=== PATIENT | female | born 1985 | race Caucasian/White ===

== ENCOUNTER 2019-06-01 09:46 | Emergency (ER) | payer OTHER ==
[2019-06-01] MEDS ORDERED: 0.9 % SODIUM CHLORIDE 1,000 ML BAG IV ONE ×2 (10:14→10:33)
[2019-06-01] MEDS ORDERED: ONDANSETRON HCL IV 4 MG/2 ML VIAL IV ONE (10:14)
[2019-06-01 10:18] LABS: URINE APPEARANCE CLEAR; URINE BILIRUBIN SMALL (NEGATIVE); URINE BLOOD NEGATIVE (NEGATIVE); URINE COLOR YELLOW; URINE GLUCOSE (UA) NEGATIVE (NEGATIVE); URINE KETONE 40 mg/dL (NEGATIVE); URINE LEUKOCYTE ESTERASE NEGATIVE (NEGATIVE); URINE NITRITE NEGATIVE (NEGATIVE); URINE PROTEIN NEGATIVE (NEGATIVE); URINE UROBILINOGEN 0.2 E.U./dL (0.20 - 1.00)
[2019-06-01 10:28] LABS: HCG,QUALITATIVE URINE NEGATIVE (NEGATIVE)
--- NOTE | 2019-06-01 10:30 | Emergency Department Record ---
History of Present Illness - General Chief Complaint: Abdominal Pain Stated Complaint: ABD PAIN Time Seen by Provider: 06/01/19 10:03 Source: Patient Mode of Arrival: Ambulatory Limitations: No limitations - History of Present Illness Initial Comments: pt has had ap for 4 days along with n/v and diarrhea. the pain is constant and in her lower abdomen MD Complaint: Abdominal pain, Flank pain Onset/Timin -: Days(s) Location: LLQ, RLQ Radiation: Back Severity scale (1-10): 7 Quality: Aching, Cramping Consistency: Constant Improves With: Nothing Worsens With: Nothing Associated Symptoms: Diarrhea, Nausea, Vomiting - Related Data LMP (females 10-50): 3 weeks ago Home Medications Medication Instructions Recorded Confirmed Last Taken Multivitamin [Multiple Vitamins] 1 each PO DAILY 06/01/19 06/01/19 Unknown Allergies Allergy/AdvReac Type Severity Reaction Status Date / Time hydromorphone [From Dilaudid] Allergy DIFFICULTY Verified 06/01/19 10:02 BREATHING Sulfa (Sulfonamide Allergy HIVES Verified 06/01/19 10:02 Antibiotics) Travel Screening - Travel/Exposure Within Last 30 Days Have you traveled within the last 30 days?: No Review of Systems Reviewed: No additional complaints except as noted below Constitutional: Reports: As per HPI. Denies: Chills, Fever, Malaise, Night sweats, Weakness, Weight change Eyes: Reports: As per HPI. Denies: Eye discharge, Eye pain, Photophobia, Vision change ENT: Reports: As per HPI. Denies: Congestion, Dental pain, Ear pain, Epistaxis, Hearing loss, Throat pain Respiratory: Reports: As per HPI. Denies: Cough, Dyspnea, Hemoptysis, Stridor, Wheezes Cardiovascular: Reports: As per HPI. Denies: Arrhythmia, Chest pain, Dyspnea on exertion, Edema, Murmurs, Orthopnea, Palpitations, Paroxysmal nocturnal dyspnea, Rheumatic Fever, Syncope Endocrine: Reports: As per HPI. Denies: Fatigue, Heat or cold intolerance, Polydipsia, Polyuria Gastrointestinal: Reports: As per HPI, Abdominal pain, Diarrhea, Nausea, Vomiting. Denies: Constipation, Hematemesis, Hematochezia, Melena Genitourinary: Reports: As per HPI. Denies: Abnormal menses, Discharge, Dyspareunia, Dysuria, Frequency, Hematuria, Incontinence, Retention, Urgency Musculoskeletal: Reports: As per HPI. Denies: Arthralgia, Back pain, Gout, Joint swelling, Myalgia, Neck pain Skin: Reports: As per HPI. Denies: Bruising, Change in color, Change in hair/nails, Lesions, Pruritus, Rash Neurological: Reports: As per HPI. Denies: Abnormal gait, Confusion, Headache, Numbness, Paresthesias, Seizure, Tingling, Tremors, Vertigo, Weakness Psychiatric: Reports: As per HPI. Denies: Anxiety, Auditory hallucinations, Depression, Homicidal thoughts, Suicidal thoughts, Visual hallucinations Hematological/Lymphatic: Reports: As per HPI. Denies: Anemia, Blood Clots, Easy bleeding, Easy bruising, Swollen glands Past Medical History - SOCIAL HISTORY Smoking Status: Never smoker Alcohol Use: None Drug Use: None - RESPIRATORY Hx Respiratory Disorders: No - CARDIOVASCULAR Hx Cardio Disorders: No - NEURO Hx Neuro Disorders: No - GI Hx GI Disorders: No - Hx Genitourinary Disorders: No - ENDOCRINE Hx Endocrine Disorders: No - MUSCULOSKELETAL Hx Musculoskeletal Disorders: No - PSYCH Hx Psych Problems: No - HEMATOLOGY/ONCOLOGY Hx Hematology/Oncology Disorders: No Family Medical History Any Significant Family History?: No Physical Exam - General General Appearance: Alert, Oriented x3, Cooperative, Mild distress - Head Head exam: Normal inspection - Eye Eye exam: Normal appearance, PERRL, EOMI Pupils: Normal accommodation - ENT ENT exam: Normal exam, Mucous membranes moist, Normal external ear exam, Normal orophraynx Ear exam: Normal external inspection. negative: External canal tenderness Nasal Exam: Normal inspection. negative: Discharge, Sinus tenderness Mouth exam: Normal external inspection, Tongue normal Teeth exam: Normal inspection. negative: Dental caries Throat exam: Normal inspection. negative: Tonsillar erythema, Tonsillar exudate - Neck Neck exam: Normal inspection, Full ROM. negative: Tenderness - Respiratory Respiratory exam: Normal lung sounds bilaterally. negative: Respiratory distress - Cardiovascular Cardiovascular Exam: Regular rate, Normal rhythm, Normal heart sounds - GI/Abdominal GI/Abdominal exam: Soft, Normal bowel sounds, Tenderness - Rectal Rectal exam: Deferred - exam: Deferred - Extremities Extremities exam: Normal inspection, Full ROM, Normal capillary refill. negative: Tenderness - Back Back exam: Reports: Normal inspection, Full ROM. Denies: Muscle spasm, Rash noted, Tenderness - Neurological Neurological exam: Alert, CN II-XII intact, Normal gait, Oriented X3 - Psychiatric Psychiatric exam: Normal affect, Normal mood - Skin Skin exam: Dry, Intact, Normal color, Warm Medical Decision Making - Lab Data Result diagrams: 06/01/19 10:25 06/01/19 10:25 Disposition Disposition: Discharge Clinical Impression: Abdominal pain Qualifiers: Abdominal location: lower abdomen, unspecified Qualified Code(s): R10.30 - Lower abdominal pain, unspecified Disposition: Home, Self-Care Condition: (1) Good Instructions: Abdominal Pain (ED) Additional Instructions: follow up with family doctor. return sooner if worse. Forms: Patient Portal Access Quality - Quality Measures Quality Measures: N/A - Blood Pressure Screening Does Patient Have Any of the Following: No Blood Pressure Classification: Normal BP Reading Systolic Measurement: 96 Diastolic Measurement: 62 Screening for High Blood Pressure: < Normal BP, F/U Not Required > [G8783]
[2019-06-01] MEDS ORDERED: KETOROLAC 30 MG/ML VIAL IVP ONE (10:34)
[2019-06-01 10:43] LABS: ABSOLUTE NEUTROPHIL COUNT 4.21; BASO % 0.2 % (0-6); EOS % 0.6 % (0-6); GRAN % 65.4 % (47-80); HEMATOCRIT 37.6 % (35.0-47.0); HEMOGLOBIN 11.8 gm/dl (11.6-16.0); LYMPH % 22.4 % (16-45); MEAN CORPUSCULAR HGB CONC 31.4 g/dl (32-36); MEAN PLATELET VOLUME 11.3 fl (7.4-10.4); MONO % 11.4 % (0-9); PLATELET COUNT 259 K/uL (130-400); RED BLOOD COUNT 4.53 M/uL (3.80-5.40); RED CELL DISTRIBUTION WIDTH 13.4 % (11.5-14.5); WHITE BLOOD COUNT W/O DIFF 6.4 K/uL (4.2-12.2)
[2019-06-01 10:52] LABS: BLOOD UREA NITROGEN 11 mg/dL (6-20); CREATININE 0.6 mg/dL (0.5-0.9); EST GLOMERULAR FILTRATION RATE > 60 mL/min
[2019-06-01 10:53] LABS: LIPASE 36 U/L (13-60); TOTAL PROTEIN 7.2 g/dL (6.6-8.7)
[2019-06-01 10:55] LABS: GLUCOSE,RANDOM 98 mg/dL (74-109)
[2019-06-01 10:58] LABS: ALB/GLOB RATIO 1.7 (1.1-1.8); ALBUMIN 4.5 g/dL (4.0-5.0); ALKALINE PHOSPHATASE 73 U/L (35-104); ALT/SGPT 11 U/L (<33); AST/SGOT 16 U/L (10.0-35.0)
--- NOTE | 2019-06-01 11:53 | CT SCAN REPORT ---
EXAMINATION: CT Abdomen and Pelvis without IV Contrast EXAM DATE: 06/01/2019 11:09 AM TECHNIQUE: Standard protocol CT imaging of the abdomen and pelvis was performed without intravenous c ontrast. INDICATION: Abdominal pain COMPARISON: None ENCOUNTER: Not applicable CT ABDOMEN AND PELVIS FINDINGS: Lung Bases: Included extent of the lung bases are clear. Hepatobiliary: The liver has a normal size with a smooth surface. There is no biliary dilatation and the gallbladder is unremarkable. Pancreas: The pancreas is normal. Spleen: The spleen is not enlarged. Adrenals: The adrenal glands are normal. Kidneys, Ureters, & Bladder: Both kidneys have a normal size and morphology. There is no hydronephro sis. No renal calculi are present. Both ureters have a normal course and caliber and the urinary blad kristy a normal morphology and uniform wall thickness. No ureteral or bladder calculi are identified. Gastrointestinal: The stomach and small bowel are normal with no obstruction or inflammation. The arthur endix is not identified. The large bowel is within normal limits. Reproductive Organs: Moderately enlarged uterus. Lymphatic System: There is no adenopathy within the abdomen or pelvis. Vasculature: Normal caliber abdominal aorta Peritoneum: Trivial pelvic free fluid. No significant ascites in the abdomen. No free air. Abdominal wall & Musculoskeletal: No suspicious bone lesions. Assessment of the solid organs, soft tissues, and vascular structures is overall limited on noncontra st imaging, IMPRESSION: 1. Diffuse moderately enlarged uterus. 2. Trivial amount of pelvic free fluid which is likely physiologic. 3. No nephrolithiasis or evidence of obstructive uropathy. Dictated by: Onur Camarillo DO on 06/01/2019 11:46 AM. .
[2019-06-01] MEDS ORDERED: CEFTRIAXONE 250 MG VIAL IM ONE (13:50)
[2019-06-01] MEDS ORDERED: AZITHROMYCIN 500 MG TABLET PO ONE (13:50)
--- NOTE | 2019-06-01 13:50 | ULTRASOUND REPORT ---
EXAMINATION: Complete Transabdominal and transvaginal Ultrasound of the Pelvis EXAM DATE: 06/01/2019 1:26 PM TECHNIQUE: Transabdominal and transvaginal ultrasound performed with duplex imaging of the ovaries. INDICATION: Pelvic pain x5 days. COMPARISON: CT abdomen and pelvis 06/01/2019. Transabdominal Ultrasound of the Pelvis Findings: 1. Uterus Size: The uterus measures 10.4 x 5.0 x 7.2 cm in dimension (length x AP x width). 2. Endometrium: The visualized endometrium measures 13 mm in thickness. 3. Myometrium: The myometrium as visualized appears normal. 4. Ovaries: The right ovary measures 5.5 x 2.8 x 4.4 cm in dimension with 3.0 x 2.3 x 2.6 cm hypoech oic area compatible with a cyst. The left ovary measures 4.0 x 2.0 x 3.2 cm in dimension. 5. Bilateral Adnexa: As above. 6. Other Findings: There is no significant pelvic fluid. Transvaginal Ultrasound of the Pelvis Findings: 1. Uterus Size: The uterus measures 10.9 x 5.2 x 6.8 cm. 2. Endometrium: The endometrium measures 16 mm in thickness. There are small nabothian cysts with on e appearing to contain some debris and there is a small amount of fluid in the endocervical canal. 3. Myometrium: Normal. 4. Ovaries: The right ovary measures 5.3 x 3.0 x 4.8 cm with 3.2 x 2.5 x 2.7 cm follicular cyst and there is both color Doppler and duplex blood flow to the right ovary. The left ovary measures 3.5 x 1 .6 x 3.9 cm and there is both color Doppler and duplex blood flow to the left ovary. 5. Other Findings: There is a small amount of pelvic fluid probably physiologic. Impression: The endometrium measures 16 mm. The ovaries appear normal with 3.2 cm right ovarian follicular cyst. There is both color Doppler and duplex blood flow to the ovaries. Small amount of pelvic fluid probably physiologic. Additional comments as above. Dictated by: Oscar Peraza MD on 06/01/2019 1:34 PM. .
[2019-06-02 22:34] LABS: GC SPECIMEN TYPE Cervix
== END 2019-06-01 14:43 | disposition home or self-care (01) ==
LOC: ER 09:46 → MERGE 09:46 → ER 14:43
DX: R10.30 Lower abdominal pain, unspecified (principal); R11.2 Nausea with vomiting, unspecified; R19.7 Diarrhea, unspecified
CPT/HCPCS: 99284 ×2; 96374; 96372; 96375; 96361; 83690; 85025; 80053; 81003; 81025; 76856; 76830; 74176; Q0111; J1885; J2405; J0696; 87210; J7030